=== PATIENT | female | born 1985 ===

== ENCOUNTER 2023-02-03 07:41 | Day surgery (SDC) | payer BC ==
[~2023-02-03 07:41] MED LIST: Lactated Ringers 1,000 ML IV SCH; Sodium Chloride 0.9% 10 ML Syringe FLUSH PRN; Sodium Chloride 0.9% 10 ML Syringe FLUSH SCH
[2023-02-03 07:49] VITALS: PULSE 57
[2023-02-03] MEDS ORDERED: fentaNYL 250 MCG/5 ML SDV ONE (07:57)
[2023-02-03] MEDS ORDERED: Midazolam 1 MG/ML 2 ML SDV ONE (07:57)
[2023-02-03] MEDS ORDERED: Propofol 200 MG/20 ML SDV ONE ×2 (07:57→10:39)
[2023-02-03] MEDS ORDERED: Lidocaine 1% 4 ML ONE (07:57)
[2023-02-03] MEDS ORDERED: Lidocaine 1% 2 ML ONE (08:04)
[2023-02-03] MEDS ORDERED: Dexamethasone 4 MG/ML 5 ML MDV ONE (10:16)
[2023-02-03] MEDS ORDERED: Ondansetron 4 MG/2 ML SDV ONE (10:16)
[2023-02-03] MEDS ORDERED: Ketorolac 30 MG/ML SDV ONE (10:20)
[2023-02-03] MEDS ORDERED: fentaNYL 100 MCG/2 ML SDV IVPUSH PRN (10:25)
[2023-02-03] MEDS ORDERED: HYDROmorphone 0.5 MG/0.5 ML Syringe IVPUSH PRN (10:25)
[2023-02-03] MEDS ORDERED: Lactated Ringers 1,000 ML ONE (10:40)
[2023-02-03 13:17] VITALS: BP 121/73
== END 2023-02-03 12:35 | disposition home or self-care (01) ==
LOC: JD.SDS 07:41
PROVIDERS: ATTEND Obstetrics & Gynecology
DX: N84.0 Polyp of corpus uteri (principal); N92.6 Irregular menstruation, unspecified; N94.89 Other specified conditions associated with female genital organs and menstrual cycle; N92.0 Excessive and frequent menstruation with regular cycle; N83.209 Unspecified ovarian cyst, unspecified side; J30.9 Allergic rhinitis, unspecified; Z79.899 Other long term (current) drug therapy; Z98.890 Other specified postprocedural states; Z90.89 Acquired absence of other organs
CPT/HCPCS: 58558; 81025; J1100; J1885; J2250; J2405; J2704; J3010; J7120; 00952; J3490